=== PATIENT | male | born 1940 | race Caucasian/White ===

== ENCOUNTER 2017-03-20 12:19 | Inpatient (IN) | payer MEDICARE, BC ==
[~2017-03-20] VITALS: Ht 185.4 cm; Wt 112.7 kg
[2017-03-20 13:47] VITALS: BP 121/63; PULSE 79; TEMP 97.9
[2017-03-20] MEDS ORDERED: LASIX 20MG TABL20 MG PO (16:27)
[2017-03-20] MEDS ORDERED: FLOMAX 0.40.4 MG/CAP PO (16:27)
[2017-03-20] MEDS ORDERED: LOTENSIN 1010 MG/TAB PO (16:28)
[2017-03-20] MEDS ORDERED: NEURONTIN600 MG/TAB PO (16:28)
[2017-03-20] MEDS ORDERED: NORVASC 5MG5 MG/TAB PO (16:29)
[2017-03-20] MEDS ORDERED: NORCO 325 MG-7.1 TAB PO (16:29)
[2017-03-20] MEDS ORDERED: K-TAB20 PO (16:29)
[2017-03-20] MEDS ORDERED: NEURONTIN300 MG/CAP PO ×2 (16:30)
[2017-03-20] MEDS ORDERED: NEXIUM 20MG20 MG PO (16:31)
[2017-03-21 06:12] VITALS: BP 159/81; PULSE 72; TEMP 98.6
[2017-03-21 16:45] VITALS: BP 131/71; PULSE 74; TEMP 97.8
[2017-03-22 06:04] VITALS: BP 163/80; PULSE 78; TEMP 98.4
[2017-03-22 16:27] VITALS: BP 132/69; PULSE 77; TEMP 97.7
[2017-03-23 05:36] VITALS: BP 154/79; PULSE 73; TEMP 98.3
[2017-03-23 17:01] VITALS: BP 132/77; PULSE 88; TEMP 99.9
[2017-03-24 04:36] VITALS: BP 171/84; PULSE 62; TEMP 98.7
[2017-03-24 17:04] VITALS: BP 127/74; PULSE 75; TEMP 97.7
[2017-03-25 06:04] VITALS: BP 153/76; PULSE 72; TEMP 98.2
[2017-03-25 16:56] VITALS: BP 141/75; PULSE 76; TEMP 98.3
[2017-03-26 05:28] VITALS: BP 139/78; PULSE 64; TEMP 97.9
[2017-03-26 15:48] VITALS: BP 122/73; PULSE 93; TEMP 98.3
[2017-03-27 06:23] VITALS: BP 153/75; PULSE 70; TEMP 98.3
[2017-03-27 15:10] VITALS: BP 180/92; PULSE 72
[2017-03-27 16:17] VITALS: BP 155/88; PULSE 81; TEMP 97.6
[2017-03-27] MEDS ORDERED: TYLENOL 325MG325 MG PO (17:21)
[2017-03-27] MEDS ORDERED: NEURONTIN300 MG/CAP PO (17:22)
[2017-03-27] MEDS ORDERED: NEURONTIN600 MG/TAB PO (17:22)
== END 2017-03-27 18:32 | DRG 559 ==
DX: S82.891D Other fracture of right lower leg, subsequent encounter for closed fracture with routine healing (principal); I63.9 Cerebral infarction, unspecified; W18.30XD Fall on same level, unspecified, subsequent encounter; Z85.030 Personal history of malignant carcinoid tumor of large intestine; Z93.3 Colostomy status; G65.2 Sequelae of toxic polyneuropathy; I10 Essential (primary) hypertension; R47.81 Slurred speech; R29.810 Facial weakness; R13.10 Dysphagia, unspecified
CPT/HCPCS: 99222-AI; 99232-AI; 99239; J1650